=== PATIENT | male | born 1965 | race Caucasian/White ===

== ENCOUNTER 2020-10-01 07:05 | Day surgery (SDC) | payer OTHER ==
[~2020-10-01] VITALS: Ht 185.4 cm; Wt 129.5 kg
[~2020-10-01 07:05] MED LIST: ACETAZOLAMIDE250 MG PO; FLUOXETINE HCL20 M1 PO
--- NOTE | 2020-10-01 08:29 | NUR ---
10/01/20 0829 Tammi Rdz 0812 PT PACU DROUSY DENIES PAIN OR NAUSEA
--- NOTE | 2020-10-01 09:44 | OR ---
[facility] [address], [place] [address] Signed DATE OF OPERATION: 10/01/2020 SURGEON: Malachi Hudson MD PREOPERATIVE DIAGNOSIS: Screening. POSTOPERATIVE DIAGNOSES: 1. Minimal sigmoid diverticulosis. 2. Minimal internal hemorrhoids. PROCEDURE: Colonoscopy without biopsy. ESTIMATED BLOOD LOSS: None. INDICATIONS: Polo is a 55-year-old gentleman, asked to see me for his initial screening colonoscopy. He has no lower GI complaints. There is no family history of colon cancer or polyps. I met with Polo in the office. He understands colonoscopy well. He understands there is risk including, but not limited to gas bloating, crampy abdominal pain, bleeding, perforation requiring surgery, and missed diagnosis. He also understands the need for IV conscious sedation. He had expressed understanding and wished to proceed. PROCEDURE NOTE: Polo was taken in the endoscopy suite and placed in the left lateral decubitus position. He was given a total of 6 mg of Versed and 100 mcg of fentanyl to cover the case. A digital rectal exam was performed and as expected, his prostate is a little enlarged and mildly indurated. The adult colonoscope was then introduced and advanced all around into the cecum under direct visualization of camera without difficulty. His prep was quite excellent. We could easily see the appendiceal orifice and the ileocecal valve. The scope was slowly withdrawn. He had just a few diverticula in the sigmoid colon. They were moderate in size, few in number, and scattered about. The rectum was unremarkable. Upon retroflexion of scope, there was very minimal internal hemorrhoid tissue. After this, the gas was suctioned out and the colonoscope removed. Mani tolerated the procedure quite well. RECOMMENDATIONS: Polo can follow up for screening colonoscopy in 10 years. Electronically Signed By: MALACHI HUDSON MD 10/01/20 0944 PATIENT NAME: BELINDA VÁSQUEZ OPERATIVE REPORT DATE OF : 67 REPORT #: [id number] PHYSICIAN: MALACHI HUDSON MD PCP: LEONARDA SUAZO MD REPORT IS CONFIDENTIAL AND NOT TO BE RELEASED WITHOUT AUTHORIZATION [address] [address] Signed MD ESTRELLITA Jones/SHERIF /[id number] cc: MD Malachi Mauro MD Copies: LEONARDA SUAZO MD, ANDREW L MD ~ Electronically Signed By: MALACHI HUDSON MD 10/01/20 0944 PATIENT NAME: BELINDA VÁSQUEZ OPERATIVE REPORT DATE OF : 67 REPORT #: [id number] PHYSICIAN: MALACHI HUDSON MD PCP: LEONARDA SUAZO MD REPORT IS CONFIDENTIAL AND NOT TO BE RELEASED WITHOUT AUTHORIZATION
== END 2020-10-01 08:50 | disposition home or self-care (01) ==
LOC: OPS 07:05 → DS 07:05 → OPS 08:15 → DS 08:15 → OPS 08:50
PROVIDERS: ATTEND Colon & Rectal Surgery
PROC: 0DJD8ZZ Inspection of Lower Intestinal Tract, Via Natural or Artificial Opening Endoscopic (ICD-10-PCS; principal; 2020-10-01 08:15)
DX: Z12.11 Encounter for screening for malignant neoplasm of colon (principal); K57.30 Diverticulosis of large intestine without perforation or abscess without bleeding; K64.8 Other hemorrhoids; F41.8 Other specified anxiety disorders; N40.0 Benign prostatic hyperplasia without lower urinary tract symptoms
CPT/HCPCS: G0500; J2250; J3010; J7121